=== PATIENT | male | born 1945 | race Two or more races ===

== ENCOUNTER 2020-05-17 06:34 | Outpatient (CLI) | payer OTHER | END 2020-05-17 06:44 | disposition home or self-care (01) | LOC: LAB 06:34 | PROVIDERS: ATTEND Urology | DX: N20.0 Calculus of kidney (principal); R97.21 Rising PSA following treatment for malignant neoplasm of prostate ==

== ENCOUNTER → 2020-05-19 07:16 | Outpatient (CLI) | payer OTHER | END | disposition home or self-care (01) | LOC: LAB 07:16 | PROVIDERS: ATTEND Urology | DX: N30.80 Other cystitis without hematuria (principal) ==

== ENCOUNTER 2020-05-21 08:37 | Outpatient (CLI) | payer OTHER | END 2020-05-21 08:51 | disposition home or self-care (01) | LOC: LAB 08:37 | PROVIDERS: ATTEND Urology | DX: N30.00 Acute cystitis without hematuria (principal) ==

== ENCOUNTER → 2022-07-27 06:12 | Outpatient (CLI) | payer OTHER | END | disposition home or self-care (01) | LOC: LAB 06:12 | PROVIDERS: ATTEND Urology | DX: R97.21 Rising PSA following treatment for malignant neoplasm of prostate (principal) ==

== ENCOUNTER 2023-01-08 09:32 | Outpatient (CLI) | payer OTHER | END 2023-01-08 09:37 | disposition home or self-care (01) | LOC: LAB 09:32 | PROVIDERS: ATTEND Urology | DX: N39.0 Urinary tract infection, site not specified (principal); R31.0 Gross hematuria ==

== ENCOUNTER → 2023-01-15 06:18 | Outpatient (CLI) | payer OTHER | END | disposition home or self-care (01) | LOC: LAB 06:18 | PROVIDERS: ATTEND Urology | DX: N20.0 Calculus of kidney (principal) ==

== ENCOUNTER → 2023-04-16 06:16 | Outpatient (CLI) | payer OTHER ==
[2023-04-17 06:06] LABS: % FREE PSA 26.4 % (.); free psa 0.74 ng/mL; total psa 2.8 ng/mL (0.0-4.0)
== END | disposition home or self-care (01) ==
LOC: LAB 06:16
PROVIDERS: ATTEND Urology
DX: R97.21 Rising PSA following treatment for malignant neoplasm of prostate (principal)

== ENCOUNTER → 2023-04-23 14:21 | Outpatient (CLI) | payer OTHER ==
[2023-04-23 14:59] LABS: PH,URINE 5.5 (5.0-8.0); URINE APPEARANCE Cloudy; URINE BILIRRUBIN Negative (NEGATIVE); URINE BLOOD Negative; URINE COLOR Yellow; URINE GLUCOSE Negative (NEGATIVE); URINE LEUKOCYTE Negative; URINE NITRATE Negative; URINE PROTEIN Trace (NEGATIVE); URINE UROBILINOGEN 0.2 E.U./dl
[2023-04-23 15:05] LABS: URINE BACTERIA 13.8 uL (0.0-1933); URINE RBC 44.6 uL (0.0-20.8); URINE WBC 2.4 uL (0.0-23.2)
[2023-04-23 15:27] LABS: URINE CRYSTALS MANY /HPF; URINE EPITHELIAL CELLS 0.6 uL (0.0-38.8)
== END | disposition home or self-care (01) ==
LOC: LAB 14:21
PROVIDERS: ATTEND Urology
DX: N30.00 Acute cystitis without hematuria (principal)

== ENCOUNTER 2024-09-07 06:14 | Outpatient (CLI) | payer OTHER ==
[2024-09-07 07:33] LABS: HEMATOCRIT 44.7 % (39.0-48.0); HEMOGLOBIN 14.9 g/dL (13-16.00); MEAN CELL VOLUME 93.5 fL (80.0-100.00); MEAN CORPUSCULAR HEMOGLOBIN 31.2 pg (27.00-32.0); MEAN CORPUSCULAR HGB CONC 33.4 g/dl (32.0-36.0); PLATELET COUNT 154 K/uL (150-450); RED BLOOD COUNT 4.78 M/uL (4.00-6.00); RED CELL DISTRIBUTION WIDTH 13.4 % (11.5-14.5)
[2024-09-07 07:36] LABS: URINE APPEARANCE Clear; URINE BILIRRUBIN Negative (NEGATIVE); URINE BLOOD Negative; URINE COLOR Yellow; URINE GLUCOSE Negative (NEGATIVE); URINE KETONE Trace (NEGATIVE); URINE LEUKOCYTE Negative; URINE NITRATE Negative; URINE PROTEIN Negative (NEGATIVE)
[2024-09-07 07:41] LABS: URINE BACTERIA 12.2 uL (0.0-1933); URINE EPITHELIAL CELLS 1.7 uL (0.0-38.8); URINE WBC 7.5 uL (0.0-23.2)
[2024-09-07 08:37] LABS: ALBUMIN 3.9 gm/dL (3.4-5.0); BILIRUBIN TOTAL 0.95 mg/dL (0.3-1.2); CALCIUM 9.2 mg/dL (8.5-10.1); CHOL HDL RATIO 2.3 (0-5.0); CREATININE SERUM 1.47 mg/dL (0.70-1.30); GFR 46.45; GLOBULINA 2.6 G/DL (2.4-3.5); POTASSIUM 4.07 mEq/L (3.5-5.1); PROSTATIC SPECIFIC ANTIGEN 3.25 NG/ML (0.010-4.00); T4 TOTAL 7.98 UG/DL (4.5-12.1); TOTAL PROTEIN 6.5 gm/dL (6.4-8.2); TSH 2.17 uIU/mL (0.358-3.74)
[2024-09-07 09:51] LABS: ob NEGATIVE (NEGATIVE)
[2024-09-07 12:12] LABS: T3 TOTAL 1.25 ng/ml (0.846-2.02); VITAMIN D3 25 HYDROXY 74.25 ng/ml (30-120)
== END 2024-09-07 06:25 | disposition home or self-care (01) ==
LOC: LAB 06:14
DX: N39.0 Urinary tract infection, site not specified (principal); D50.9 Iron deficiency anemia, unspecified; R73.01 Impaired fasting glucose; E03.9 Hypothyroidism, unspecified; E78.2 Mixed hyperlipidemia; Z12.11 Encounter for screening for malignant neoplasm of colon; E55.9 Vitamin D deficiency, unspecified; Z12.5 Encounter for screening for malignant neoplasm of prostate; N40.0 Benign prostatic hyperplasia without lower urinary tract symptoms